=== PATIENT | female | born 1985 | race Caucasian/White ===

== ENCOUNTER 2018-02-10 02:23 | Emergency (ER) | payer BC ==
[2018-02-10 02:36] VITALS: RESP 16; TEMP 97.6
[2018-02-10] MEDS ORDERED: Sodium Chloride 0.9% 1,000 ML IV STA (02:39)
--- NOTE | 2018-02-10 02:53 | ED PDOC ---
Arrival/HPI - General Chief Complaint: Alcohol Ingestion Time Seen by Provider: 02/10/18 02:27 Historian: Patient, Spouse - History of Present Illness Narrative History of Present Illness (Text): 02/10/18 02:42 32 year old female, with no significant past medical history, presents for alcohol intoxication. As per , patient has been drinking mixture of wine and vodka. Patient drank a great amount. Patient reports multiple episodes of vomiting, but denies any fever, chills, chest pain, shortness of breath, diarrhea, urinary symptoms, back pain, neck pain, headache, dizziness, or any other complaints. Symptom Onset: Gradual Symptom Course: Unchanged Activities at Onset: Light Context: Home Past Medical History - Provider Review Nursing Documentation Reviewed: Yes - Infectious Disease Hx of Infectious Diseases: None - Cardiac Hx Cardiac Disorders: No - Pulmonary Hx Respiratory Disorders: No - Neurological Hx Neurological Disorder: No - HEENT Hx HEENT Disorder: No - Renal Hx Renal Disorder: No - Endocrine/Metabolic Hx Endocrine Disorders: No - Hematological/Oncological Hx Blood Disorders: No - Integumentary Hx Dermatological Disorder: No - Musculoskeletal/Rheumatological Hx Musculoskeletal Disorders: No - Gastrointestinal Hx Gastrointestinal Disorders: No - Genitourinary/Gynecological Hx Genitourinary Disorders: No - Psychiatric Hx Psychophysiologic Disorder: No Hx Substance Use: No - Surgical History Hx Bile Duct Stent: Yes - Anesthesia Hx Anesthesia: Yes Hx Anesthesia Reactions: No Hx Malignant Hyperthermia: No Family/Social History - Physician Review Nursing Documentation Reviewed: Yes Family/Social History: No Known Family HX Smoking Status: Never Smoked Hx Alcohol Use: Yes Frequency of alcohol use: Socially Hx Substance Use: No Allergies/Home Meds Allergies/Adverse Reactions: Allergies No Known Allergies Allergy (Verified 02/10/18 02:28) Home Medications: Home Meds Medication Instructions Recorded Confirmed No Known Home Med 02/10/18 02/10/18 Review of Systems - Physician Review All systems were reviewed & negative as marked: Yes - Review of Systems Constitutional: absent: Fevers, Other (Chills) Respiratory: absent: SOB Cardiovascular: absent: Chest Pain Gastrointestinal: Vomiting. absent: Diarrhea Genitourinary Female: absent: Dysuria, Frequency, Hematuria Musculoskeletal: absent: Back Pain, Neck Pain Neurological: absent: Headache, Dizziness Physical Exam Vital Signs Reviewed: Yes Vital Signs Temp Pulse Resp BP Pulse Ox 02/10/18 05:30 74 16 112/68 99 02/10/18 04:24 68 16 110/64 99 02/10/18 02:24 97.6 F 78 16 108/60 100 Temperature: Afebrile Blood Pressure: Normal Pulse: Regular Respiratory Rate: Normal Appearance: Positive for: Well-Appearing, Non-Toxic, Comfortable Pain Distress: None Mental Status: Positive for: Alert and Oriented X 3 - Systems Exam Head: Present: Atraumatic, Normocephalic Pupils: Present: PERRL Extroacular Muscles: Present: EOMI Conjunctiva: Present: Normal Mouth: Present: Moist Mucous Membranes Neck: Present: Normal Range of Motion Respiratory/Chest: Present: Clear to Auscultation, Good Air Exchange. No: Respiratory Distress, Accessory Muscle Use Cardiovascular: Present: Regular Rate and Rhythm, Normal S1, S2. No: Murmurs Abdomen: No: Tenderness, Distention, Peritoneal Signs Back: Present: Normal Inspection Upper Extremity: Present: Normal Inspection. No: Cyanosis, Edema Lower Extremity: Present: Normal Inspection. No: Edema Neurological: Present: GCS=15, CN II-XII Intact, Speech Normal Skin: Present: Warm, Dry, Normal Color. No: Rashes Psychiatric: Present: Alert, Oriented x 3, Normal Insight, Normal Concentration Medical Decision Making ED Course and Treatment: 02/10/18 02:42 Impression: 32 year old female presents for alcohol intoxicating associated with multiple episodes of vomiting. Plan: -- Labs -- Protonix Inj, IV FLuids, Zofran Inj -- HCG, Qualit. Urine -- Urinalysis -- Reassess and disposition Progress Notes: 02/10/18 03:49 On re-evaluation, patient feels better and abdomen soft. 02/10/18 06:00 pt awake aler tambulatory labs neg. ucg neg. asking for immediate dc. dc home with . eleanor further obs. - Lab Interpretations Lab Results: 02/10/18 02:50 02/10/18 02:50 Lab Results 02/10/18 02:50: Alcohol, Quantitative 172 H 02/10/18 02:50: Sodium 146, Potassium 3.5 L, Chloride 108 H, Carbon Dioxide 21, Anion Gap 20, BUN 9, Creatinine 0.7, Est GFR ( Amer) > 60, Est GFR (Non- Af Amer) > 60, Random Glucose 115 H, Calcium 9.0, Magnesium 2.2, Total Bilirubin 0.4, AST 35, ALT 29, Alkaline Phosphatase 85, Total Protein 8.1, Albumin 4.5, Globulin 3.6, Albumin/Globulin Ratio 1.2, Lipase 183 02/10/18 02:50: PT 11.0, INR 0.97, APTT 25.6 02/10/18 02:50: WBC 8.8, RBC 4.78, Hgb 12.1, Hct 36.1, MCV 75.5 L, MCH 25.3, MCHC 33.5, RDW 14.3, Plt Count 369, MPV 10.5, Gran % 68.8 H, Lymph % (Auto) 25.9 , [place] % (Auto) 4.5, Eos % (Auto) 0.5 L, Baso % (Auto) 0.3, Gran # 6.08, Lymph # (Auto) 2.3, [place] # (Auto) 0.4, Eos # (Auto) 0.0, Baso # (Auto) 0.03 I have reviewed the lab results: Yes - Medication Orders Current Medication Orders: Discontinued Medications Sodium Chloride (Sodium Chloride 0.9%) 1,000 mls @ 1,000 mls/hr IV .Q1H STA Stop: 02/10/18 03:38 Last Admin: 02/10/18 02:50 Dose: 1,000 mls/hr eMAR Start Stop Document 02/10/18 02:50 JOL (Rec: 02/10/18 05:52 JOL [id number]) Intravenous Solution Start Date 02/10/18 Start Time 02:50 End Date 02/10/18 End time 03:50 Total Infusion Time 60 Ondansetron HCl (Zofran Inj) 4 mg IVP STAT STA Stop: 02/10/18 02:40 Last Admin: 02/10/18 05:53 Dose: Pantoprazole Sodium (Protonix Inj) 40 mg IVP STAT STA Stop: 02/10/18 02:40 - Scribe Statement The provider has reviewed the documentation as recorded by the Zafar Colvin Provider Karinaibe Attestation: All medical record entries made by the Karinaibbrice were at my direction and personally dictated by me. I have reviewed the chart and agree that the record accurately reflects my personal performance of the history, physical exam, medical decision making, and the department course for this patient. I have also personally directed, reviewed, and agree with the discharge instructions and disposition. Disposition/Present on Arrival - Present on Arrival Any Indicators Present on Arrival: No History of DVT/PE: No History of Uncontrolled Diabetes: No Urinary Catheter: No History of Decub. Ulcer: No History Surgical Site Infection Following: None - Disposition Have Diagnosis and Disposition been Completed?: Yes Diagnosis: Alcohol abuse, Vomiting Disposition: HOME/ ROUTINE Disposition Time: 05:00 Condition: STABLE Discharge Instructions (ExitCare): Nausea and Vomiting, Adult (DC), Alcohol Abuse and Alcoholism (DC) Additional Instructions: return to any er with any worsening symptoms or concenrs. Referrals: [facility] [Outside] - Follow up with primary [facility] [place] [Outside] - Follow up with primary Forms: [email or web address] ([place])
[2018-02-10 03:03] LABS: BASO # 0.03 K/mm3 (0.0-2.0); BASO % 0.3 % (0.0-3.0); EOS % 0.5 % (1.5-5.0); GRAN # 6.08 (1.4-6.5); GRAN % 68.8 % (50.0-68.0); HEMOGLOBIN 12.1 g/dL (12.0-16.0); LYMPH # 2.3 (1.2-3.4); LYMPH % 25.9 % (22.0-35.0); MEAN CELL VOLUME 75.5 fl (80.0-105.0); MEAN CORPUSCULAR HEMOGLOBIN 25.3 pg (25.0-35.0); MEAN CORPUSCULAR HGB CONC 33.5 g/dl (31.0-37.0); MEAN PLATELET VOLUME 10.5 fl (7.0-11.0); MONO # 0.4 (0.1-0.6); MONO % 4.5 % (1.0-6.0); RBC 4.78 10^6/uL (3.5-6.1); RED CELL DISTRIBUTION WIDTH 14.3 % (11.5-14.5); WHITE BLOOD COUNT 8.8 10^3/ul (4.5-11.0)
[2018-02-10 03:04] LABS: INR 0.97
[2018-02-10 03:06] LABS: PARTIAL THROMBOPLASTIN TIME 25.6 Seconds (25.1-36.5)
[2018-02-10 03:29] LABS: ALB/GLOB RATIO 1.2 (1.1-1.8); ALBUMIN 4.5 g/dL (3.0-4.8); ALT/SGPT 29 U/L (7-56); AST/SGOT 35 U/L (14-36); BLOOD UREA NITROGEN 9 mg/dL (7-21); GFR AFRICAN-AMERICAN > 60; GFR NON-AFRICAN AMERICAN > 60; LIPASE 183 U/L (23-300)
[2018-02-10 05:54] VITALS: O2SAT 99
[2018-02-10 05:56] VITALS: BP 112/68; PULSE 74
== END 2018-02-10 05:30 | disposition home or self-care (01) ==
LOC: ED 02:23
DX: F10.10 Alcohol abuse, uncomplicated (principal); R11.10 Vomiting, unspecified
CPT/HCPCS: 80053; 83690; 83735; 85025; 85610; 85730; 96360; 99284; G0480; J7030